=== PATIENT | male | born 1950 | race Native Hawaiian/Other Pacific Islander ===

== ENCOUNTER 2017-03-10 07:31 | Day surgery (SDC) | payer MEDICARE ==
[2017-03-01 13:41] VITALS: BMI 24.4
[2017-03-10] MEDS ORDERED: Midazolam 2 MG/2 ML VIAL ONE ×2 (08:49→10:30)
[2017-03-10] MEDS ORDERED: Lidocaine 2% Inj (20ml) ONE (10:29)
[2017-03-10] MEDS ORDERED: Iodixanol 320 MG/ML 200 ML BOTTLE IV ONE (10:29)
[2017-03-10] MEDS ORDERED: Iodixanol 320 MG/ML 100 ML BOTTLE IV ONE (10:29)
[2017-03-10] MEDS ORDERED: Heparin 1,000 Units/500 ml NS IV ONE (10:29)
[2017-03-10] MEDS ORDERED: DiphenhydrAMINE 50 mg/ml Inj ONE (10:29)
[2017-03-10] MEDS ORDERED: Nitroglycerin 50mg in D5W 50 MG/250 ML BOTTLE IV ONE (11:16)
[2017-03-10] MEDS ORDERED: Sodium Chloride 0.9% 1,000 ML IV SCH (13:30)
[2017-03-10] MEDS ORDERED: Sodium Chloride 0.9% 1,000 ML IV ONE ×2 (14:21→16:30)
[2017-03-10 18:01] VITALS: O2SAT 100
[2017-03-10 18:56] VITALS: BP 154/74; PULSE 84; RESP 18; TEMP 97.9
--- NOTE | 2017-03-17 15:52 | VASCLAB ---
PERIPHERAL ANGIOGRAPHY AND INTERVENTION REPORT DATE OF PROCEDURE: 03/10/2017 BRIEF DESCRIPTION: The patient is a 66-year-old gentleman with lifestyle limiting claudication and objective evidence of severe left SFA disease by outpatient testing. Risks and benefits of peripheral angiography and possible need for intervention were discussed with the patient. Informed consent obtained and the patient was brought to the photonic laboratory technician and prepped and draped in the usual sterile fashion for right femoral artery access. The right femoral artery was accessed using a micropuncture needle and catheter system and subsequent 5-Bruneian sheath was placed in the right femoral artery for initial diagnostic imaging. A ContraFlush catheter was inserted and aortic and aortoiliac imaging was performed revealing patent vessels at this level. The ContraFlush catheter was subsequently placed at the left aortoiliac junction and diagnostic angiography was performed at various levels of the left lower extremity revealing mild to moderate ostial SFA disease, severe greater than 80% mid SFA disease and a patent popliteal artery with single vessel runoff to the ankle via the anterior tibial artery. The left tibioperoneal trunk was diffusely diseased and both posterior tibial and peroneal arteries were diffusely diseased. Diagnostic catheters were removed and via an Advantage 0.35 x 260 cm guidewire, a 5-Bruneian sheath was exchanged for a 6-Bruneian 45 cm sheath over and placed at the left iliofemoral junction. This was followed by insertion of a 0.018 TrailBlazer catheter and a Command ES 0.14 wire, which was used to cross the lesion. The TrailBlazer was left distal to the left SFA lesion. The Command ES wire was removed and a ViperWire was reinserted at this level followed by placement of a 4-7 Emboshield and deployed in the popliteal artery. A LKE874, 1.5 size atherectomy device was used and 3 passes were made across the djy-wf-vsvoac SFA lesion followed by angioplasty with an [place] 4 x 80 mm balloon to nominal pressure. Final balloon dilatation was done with an Goyal Lutonix 5 x 60 balloon to nominal pressures and subsequent imaging showed a widely patent intervention site in the mzk-uu-[id number] SFA and improved distal runoff via the popliteal and single anterior tibial artery to the ankle. Catheters and wires were removed and the up-and-over crook sheath was exchanged for a 6-Bruneian regular sheath which will be left to be removed with manual compression. CONCLUSION: 1. Severe ldt-np-qrovbc left SFA obstruction. 2. Single vessel runoff to the left leg via the popliteal and left anterior tibial artery. 3. Severe tibioperoneal disease with severe diffuse posterior tibial and peroneal branches which were sub totally obstructed in multiple areas and diminished at the level of the cath. 4. Patent aortoiliac vessels. 5. Eznw-mg-fkbiwepc ostial SFA disease. 6. Patent left profunda femoral artery. The patient was on dual antiplatelet therapy during and prior to the procedure and heparin was used to maintain ACPs in the range of 250 to 300. Right femoral artery sheath will be removed and manual pressure will be used to maintain hemostasis. PLAN: The patient should continue dual antiplatelet therapy upon discharge along with usual medications for blood pressure and cholesterol treatment. The patient has been advised to start a regular walking program and will be followed up in the office for maintenance and ongoing surveillance for peripheral arterial disease. PREPROCEDURE FINDINGS: Severe left mid to distal superficial femoral artery disease. POSTPROCEDURE FINDINGS: Resolution of obstruction from greater than 80% to less than 10% using atherectomy and drug-coated balloon angioplasty supported by filter protection. Chai Lundberg MD 03/17/201715:51:40
--- NOTE | 2017-03-18 09:13 | CARDCATH ---
PERIPHERAL ANGIOGRAPHY AND INTERVENTION REPORT DATE OF PROCEDURE: 03/10/2017 BRIEF DESCRIPTION: The patient is a 66-year-old gentleman with lifestyle limiting claudication and objective evidence of severe left SFA disease by outpatient testing. Risks and benefits of peripheral angiography and possible need for intervention were discussed with the patient. Informed consent obtained and the patient was brought to the medical lab scientist and prepped and draped in the usual sterile fashion for right femoral artery access. The right femoral artery was accessed using a micropuncture needle and catheter system and subsequent 5-[place] sheath was placed in the right femoral artery for initial diagnostic imaging. A ContraFlush catheter was inserted and aortic and aortoiliac imaging was performed revealing patent vessels at this level. The ContraFlush catheter was subsequently placed at the left aortoiliac junction and diagnostic angiography was performed at various levels of the left lower extremity revealing mild to moderate ostial SFA disease, severe greater than 80% mid SFA disease and a patent popliteal artery with single vessel runoff to the ankle via the anterior tibial artery. The left tibioperoneal trunk was diffusely diseased and both posterior tibial and peroneal arteries were diffusely diseased. Diagnostic catheters were removed and via an Advantage 0.35 x 260 cm guidewire, a 5-[place] sheath was exchanged for a 6-[place] 45 cm sheath over and placed at the left iliofemoral junction. This was followed by insertion of a 0.018 TrailBlazer catheter and a Command ES 0.14 wire, which was used to cross the lesion. The TrailBlazer was left distal to the left SFA lesion. The Command ES wire was removed and a ViperWire was reinserted at this level followed by placement of a 4-7 Emboshield and deployed in the popliteal artery. A RDS180, 1.5 size atherectomy device was used and 3 passes were made across the [id number]-lg-xkhfxc SFA lesion followed by angioplasty with an [place] 4 x 80 mm balloon to nominal pressure. Final balloon dilatation was done with an Goyal Lutonix 5 x 60 balloon to nominal pressures and subsequent imaging showed a widely patent intervention site in the [id number]-rt-mqrdyp SFA and improved distal runoff via the popliteal and single anterior tibial artery to the ankle. Catheters and wires were removed and the up-and-over crook sheath was exchanged for a 6-[place] regular sheath which will be left to be removed with manual compression. CONCLUSION: 1. Severe zkt-mk-yybjqp left SFA obstruction. 2. Single vessel runoff to the left leg via the popliteal and left anterior tibial artery. 3. Severe tibioperoneal disease with severe diffuse posterior tibial and peroneal branches which were sub totally obstructed in multiple areas and diminished at the level of the cath. 4. Patent aortoiliac vessels. 5. Onot-fp-fspupmwg ostial SFA disease. 6. Patent left profunda femoral artery. The patient was on dual antiplatelet therapy during and prior to the procedure and heparin was used to maintain ACPs in the range of 250 to 300. Right femoral artery sheath will be removed and manual pressure will be used to maintain hemostasis. PLAN: The patient should continue dual antiplatelet therapy upon discharge along with usual medications for blood pressure and cholesterol treatment. The patient has been advised to start a regular walking program and will be followed up in the office for maintenance and ongoing surveillance for peripheral arterial disease. PREPROCEDURE FINDINGS: Severe left mid to distal superficial femoral artery disease. POSTPROCEDURE FINDINGS: Resolution of obstruction from greater than 80% to less than 10% using atherectomy and drug-coated balloon angioplasty supported by filter protection. Chai Lundberg MD /Chai Lundberg MD12:58:15
== END 2017-03-10 19:00 | disposition home or self-care (01) ==
LOC: C.CATHLAB 07:31
PROVIDERS: ATTEND Specialist
DX: I70.212 Atherosclerosis of native arteries of extremities with intermittent claudication, left leg (principal)
CPT/HCPCS: 36247; 37225; 75625; 75716; 75774; 82948; 85347; 94770; C1714; C1766; C1769; C1884; C1887; C2623; J0360; J1200; J1644; J2250; J3010; J7040; Q9966; Q9967